=== PATIENT | female | born 1985 | race Caucasian/White ===

== ENCOUNTER 2019-01-08 19:14 | Inpatient (IN) | payer BC ==
[2019-01-08] VITALS (17 sets, daily range): BP systolic 89–135; BP diastolic 51–83; PULSE 75–107; TEMP 98.5–98.8
[~2019-01-08] VITALS: Ht 170.2 cm; Wt 97.7 kg
[~2019-01-08 19:14] MED LIST: MOTRIN 600600 MG/TAB PO; PERCOCET 325 MG1 TA2 PO; PRENATAL1 TA1; Senokot-S PO
--- NOTE | 2019-01-08 19:14 | NUR ---
HERE WITH SPOUSE FOR LABOR CHECK. AMBULATED FROM ER WITH NO CTXS OBSERVED DURING WALK. SAYS STARTED AT 0245 TODAY MOSTLY IN LOWER ABDOMEN. EFM MATI RE. 0 REPORT TO SAYDE
[2019-01-08] MEDS ORDERED: TUMS500 MG (19:48)
[2019-01-08 22:40] LABS: BASO % 0.3 % (0.0-2.0); EOS # 0.2 (0.0-0.7); EOS % 1.9 % (0-4.0); GRAN # 7.1 (1.4-6.5); GRAN % 61.1 % (42.2-75.2); HEMATOCRIT 37.4 % (37.0-47.0); HEMOGLOBIN 12.2 g/dl (12.5-16.0); LYMPH # 3.2 (1.2-3.4); LYMPH % 27.7 % (20.0-51.0); MEAN CELL VOLUME 85 fl (80.0-100.0); MEAN CORPUSCULAR HEMOGLOBIN 28 pg (27.0-31.0); MEAN CORPUSCULAR HGB CONC 33 g/dl (33.0-37.0); MEAN PLATELET VOLUME 10.1 fl (7.4-10.4); MONO % 8.6 % (1.7-9.3); PLATELET COUNT 257 K/mm3 (130-400); RED BLOOD COUNT 4.39 M/mm3 (4.10-5.30); REDCELL DISTRIBUTION WIDTH-CV 14.5 % (11.5-14.5)
--- NOTE | 2019-01-08 23:00 | NUR ---
1939- Report taken from FLO Cooley. EFM and TOCO on and tracing. SVE 1-/-3 by FLO Cooley. Patient has complaints of contractions starting at 0245 intermittently every 5-15 minutes. Patient states her contractions increased in intensity and frequency around 1800 after walking. Patient states her contractions were every 5-7 minutes at home. Patient denies LOF, bleeding, or spotting. 2027- See Physician Notification. 2039- Subtle decelerations noted on FHT strip. Patient repositioned RL. 2044- SVE -/-3 by FLO Cooley. Contractions tracing every 2-3 minutes. 2129- Patient is complaining of stronger, more intense pain with contractions. 2149- SVE /2 by FLO Cooley. SROM. Small amount of clear, odorless fluid noted. Lenora updated . Admission orders given. 2219- Patient is requesting an epidural. MATTHEW Alvarenga notified. 2229- Patient sitting upright on edge of bed for epidural placement. EFM and TOCO on. FHR tracing intermittently due to maternal position. RN remains at bedside. 2240- Single Shot. See Anesthesia Note. 2300- VSS following epidural placement. 2319- SVE /-2. Rios catheter inserted. Late decelerations noted on FHT strip. Patient sitting upright in [place] position. 2324- Patient repositioned LL with peanut ball. Will continue to monitor.
[2019-01-09] VITALS (16 sets, daily range): BP systolic 100–162; BP diastolic 57–75; PULSE 65–113; TEMP 98.2–98.6
--- NOTE | 2019-01-09 02:00 | NUR ---
0030- Decelerations noted on FHT strip. Patient repositioned RL with peanut ball. Patient is complaining of increased vaginal pressure at this time. en route to hospital. 0100- updated. reviews FHT strip at nurses station. 0110- at bedside. SVE Complete/+1. Labor room prepped for delivery. Rios catheter removed. 0117- Patient begins to push with contractions. 0121- of viable baby boy. Cord clamped and cut. care assumed by FLO Alvarado. 0124- Spontaneous delivery of placenta. Fundus massaged to firm by . Pitocin infusing at 333 ml/hr. 2nd degree perineal laceration repaired by . Pericare completed. Ice pack applied. 0130- PP Recovery started.
--- NOTE | 2019-01-09 11:51 | NUR ---
Initial visit; Parents thanked for offering congratulations for the of their son. thanked them for choosing [facility].
[2019-01-10 07:40] VITALS: BP 106/65; PULSE 65; TEMP 97.8
[2019-01-10 08:02] LABS: HEMATOCRIT 30.5 % (37.0-47.0); HEMOGLOBIN 9.8 g/dl (12.5-16.0)
[2019-01-10] MEDS ORDERED: MOTRIN 600600 MG/TAB PO (08:09)
[2019-01-10] MEDS ORDERED: PERCOCET 325 MG1 TA2 PO (08:10)
[2019-01-10] MEDS ORDERED: SENOKOT S 50 MG1 TAB PO (08:10)
== END 2019-01-10 11:30 | disposition home or self-care (01) | DRG 807 ==
LOC: LDRO 19:14 → LDR 19:14 → LDRO 22:00 → LDR 22:01 → OB 01-09 04:00
PROVIDERS: ADMIT Obstetrics & Gynecology
PROC: 10E0XZZ Delivery of Products of Conception, External Approach (ICD-10-PCS; principal; 2019-01-09)
PROC: 0KQM0ZZ Repair Perineum Muscle, Open Approach (ICD-10-PCS; 2019-01-09)
DX: O34.13 Maternal care for benign tumor of corpus uteri, third trimester (principal); Z37.0 Single live birth; Z3A.38 38 weeks gestation of pregnancy; O70.1 Second degree perineal laceration during delivery; E78.5 Hyperlipidemia, unspecified; O75.89 Other specified complications of labor and delivery; O99.214 Obesity complicating childbirth
CPT/HCPCS: J2590; J2795; J7120